=== PATIENT | female | born 2000 | race Caucasian/White ===

== ENCOUNTER 2019-11-28 02:08 | Emergency (ER) | payer OTHER ==
[~2019-11-28] VITALS: Ht 162.6 cm; Wt 56.8 kg
[~2019-11-28 02:08] MED LIST: ZOFRAN ODT4 MG PO
[2019-11-28 02:20] VITALS: BP 114/69; TEMP 98.8
[2019-11-28] MEDS ORDERED: ATARAX 25MG25 MG/TAB PO (02:28)
[2019-11-28] MEDS ORDERED: BIRTH CONTROL (02:29)
[2019-11-28 03:52] VITALS: PULSE 62
== END 2019-11-28 03:53 | disposition home or self-care (01) ==
LOC: COL.ER 02:08
PROVIDERS: Emergency Medicine
DX: N92.1 Excessive and frequent menstruation with irregular cycle (principal); Z32.02 Encounter for pregnancy test, result negative

== ENCOUNTER 2020-12-10 08:41 | Emergency (ER) | payer OTHER ==
[~2020-12-10] VITALS: Ht 165.1 cm; Wt 59.1 kg
[~2020-12-10 08:41] MED LIST changes: +ATARAX 25MG25 MG/TAB PO; +BACTRIM DS 8001 TAB PO; +BIRTH CONTROL; +CEPHALEXIN500 M1 PO
[2020-12-10 08:53] VITALS: TEMP 98.2
[2020-12-10] MEDS ORDERED: CEPHALEXIN500 M1 PO (10:18)
[2020-12-10] MEDS ORDERED: BACTRIM DS 8001 TAB PO (10:18)
[2020-12-10 10:43] VITALS: BP 130/74; PULSE 52
== END 2020-12-10 10:40 | disposition home or self-care (01) ==
LOC: COL.ER 08:41
DX: L03.312 Cellulitis of back [any part except buttock and flank] (principal); B34.9 Viral infection, unspecified; N92.1 Excessive and frequent menstruation with irregular cycle; F17.290 Nicotine dependence, other tobacco product, uncomplicated

== ENCOUNTER 2021-05-30 14:26 | Emergency (ER) | payer SELFPAY | END 2021-05-30 14:45 | disposition left against medical advice (07) | LOC: COL.ER 14:26 | DX: R69 Illness, unspecified (principal) ==

== ENCOUNTER 2023-10-16 16:59 | Emergency (ER) | payer OTHER ==
[~2023-10-16] VITALS: Ht 162.6 cm; Wt 68.2 kg
[2023-10-16 17:10] VITALS: TEMP 98.1
[2023-10-16 17:51] LABS: COLLECTION METHOD CLEAN CATCH
[2023-10-16 18:04] LABS: BASO # 0.1 K/mm3 (0.0-0.2); EOS # 0.1 K/mm3 (0.0-0.7); EOS % 1.7 % (0.0-4.0); GRAN # 4.2 K/mm3 (1.4-6.5); GRAN % 51.1 % (42.2-75.2); HEMATOCRIT 39.5 % (37.0-47.0); HEMOGLOBIN 12.9 g/dl (12.5-16.0); LYMPH # 2.9 K/mm3 (1.2-3.4); LYMPH % 35.3 % (20.0-51.0); MEAN CELL VOLUME 91 fl (80.0-100.0); MEAN CORPUSCULAR HEMOGLOBIN 30 pg (27-31); MEAN CORPUSCULAR HGB CONC 33 g/dl (33.0-37.0); MEAN PLATELET VOLUME 9.7 fl (7.4-10.4); MONO # 0.9 K/mm3 (0.1-0.6); MONO % 10.7 % (1.7-9.3); PLATELET COUNT 257 K/mm3 (130-400); RED BLOOD COUNT 4.35 M/mm3 (4.10-5.30); REDCELL DISTRIBUTION WIDTH-CV 13.2 % (11.5-14.5)
[2023-10-16 18:13] LABS: BILIRUBIN,TOTAL 0.8 mg/dL (0.2-1.2); CALCIUM 8.9 mg/dL (8.4-10.2); CREATININE, serum 0.86 mg/dL (0.57-1.11); POTASSIUM 3.8 mEq/L (3.5-4.5); TOTAL PROTEIN 6.5 g/dl (6.2-8.1)
[2023-10-16 18:16] LABS: PH 6.5 (5.0-8.5); URINE APPEARANCE CLOUDY (CLEAR/HAZY); URINE BLOOD 3+ (NEGATIVE); URINE COLOR ORANGE (YELLOW); URINE GLUCOSE NEGATIVE (NEGATIVE); URINE KETONE TRACE (NEGATIVE); URINE NITRATE NEGATIVE (NEGATIVE); URINE PROTEIN(semi-quant) 2+ (NEGATIVE)
[2023-10-16 18:30] VITALS: BP 118/77; PULSE 66
[2023-10-16] MEDS ORDERED: CEFTIN500 MG PO (20:44)
== END 2023-10-16 18:57 | disposition left against medical advice (07) ==
LOC: COL.ER 16:59
PROVIDERS: Nurse Practitioner
DX: N92.0 Excessive and frequent menstruation with regular cycle (principal); N39.0 Urinary tract infection, site not specified